=== PATIENT | male | born 1985 | race Caucasian/White ===

== ENCOUNTER 2017-05-31 12:55 | Emergency (ER) | payer OTHER ==
[~2017-05-31] VITALS: Ht 162.5 cm; Wt 56.7 kg
[~2017-05-31 12:55] MED LIST: CIPRO500 MG PO; FLAGYL500 MG PO; NAPROSYN500 MG PO; PEN-VEE K500 MG PO; SUBOXONE 8 MG-1 EACH SL; ULTRAM50 MG PO; VICODIN 5/500 505 MG PO
[2017-05-31 13:11] VITALS: BP 107/48
[2017-05-31] MEDS ORDERED: NAPROSYN500 MG PO (14:33)
== END 2017-05-31 19:59 | disposition home or self-care (01) ==
LOC: ED 12:55
DX: S30.0XXA Contusion of lower back and pelvis, initial encounter (principal); S70.02XA Contusion of left hip, initial encounter; F17.200 Nicotine dependence, unspecified, uncomplicated; W22.8XXA Striking against or struck by other objects, initial encounter; Y93.89 Activity, other specified; Y92.89 Other specified places as the place of occurrence of the external cause; Y99.8 Other external cause status

== ENCOUNTER → 2017-07-11 | Outpatient (CLI) | payer OTHER ==
[2017-07-12 07:04] LABS: HEPATITIS B SURFACE AB 006395 Non Reactive (.); HEPATITIS B SURFACE AG Negative (Negative); HEPATITIS C AB <0.1 (0.0-0.9)
== END ==
LOC: LAB 13:24
DX: Z11.59 Encounter for screening for other viral diseases (principal); Z72.89 Other problems related to lifestyle

== ENCOUNTER 2018-05-15 17:25 | Emergency (ER) | payer OTHER ==
[~2018-05-15] VITALS: Ht 162.5 cm; Wt 61.2 kg
[2018-05-15 17:26] VITALS: BP 107/48
== END 2018-05-15 19:17 | disposition home or self-care (01) ==
LOC: ED 17:25
DX: S00.83XA Contusion of other part of head, initial encounter (principal); W22.8XXA Striking against or struck by other objects, initial encounter; Y93.89 Activity, other specified; Y92.89 Other specified places as the place of occurrence of the external cause; Y99.8 Other external cause status

== ENCOUNTER 2021-02-26 16:36 | Emergency (ER) | payer OTHER ==
[~2021-02-26] VITALS: Ht 162.5 cm; Wt 54.4 kg
[2021-02-26 16:49] VITALS: BP 124/74
[2021-02-26] MEDS ORDERED: MIRALAX119 GM PO (17:38)
[2021-02-26] MEDS ORDERED: COL-RITE100 M1 PO (17:38)
[2021-02-26] MEDS ORDERED: NAPROSYN500 MG PO ×2 (17:55→17:56)
== END 2021-02-26 17:59 | disposition home or self-care (01) ==
LOC: ED 16:36
DX: K59.00 Constipation, unspecified (principal); Z79.899 Other long term (current) drug therapy

== ENCOUNTER 2023-07-17 15:51 | Emergency (ER) | payer OTHER ==
[~2023-07-17] VITALS: Ht 172.7 cm; Wt 72.6 kg
[~2023-07-17 15:51] MED LIST changes: +COL-RITE100 M1 PO; +MIRALAX119 GM PO
[2023-07-17 16:09] VITALS: BP 102/40
== END 2023-07-17 17:23 ==
LOC: ED 15:51
DX: M54.9 Dorsalgia, unspecified (principal); Z98.890 Other specified postprocedural states

== ENCOUNTER 2024-10-12 19:20 | Emergency (ER) | payer OTHER ==
[~2024-10-12] VITALS: Ht 162.5 cm; Wt 63.5 kg
[2024-10-12 19:31] VITALS: BP 103/58
[2024-10-12] MEDS ORDERED: predniSONE 20 MG TAB PO ONE (19:40)
[2024-10-12] MEDS ORDERED: METHOCARBAMOL 500 MG TAB PO ONE (19:40)
[2024-10-12] MEDS ORDERED: PREDNISONE20 M1 PO (19:41)
[2024-10-12] MEDS ORDERED: METHOCARBAMOL500 M1 PO (19:41)
== END 2024-10-12 19:38 | disposition home or self-care (01) ==
LOC: ED 19:20
DX: M94.0 Chondrocostal junction syndrome [Tietze] (principal); Z98.890 Other specified postprocedural states

== ENCOUNTER 2025-04-02 19:23 | Emergency (ER) | payer OTHER ==
[~2025-04-02] VITALS: Ht 165.1 cm; Wt 54.4 kg
[~2025-04-02 19:23] MED LIST changes: +METHOCARBAMOL500 M1 PO; +PREDNISONE20 M1 PO
[2025-04-02 19:42] VITALS: BP 102/52
[2025-04-02] MEDS ORDERED: SODIUM CHLORIDE 0.9% 1,000 ML IV ONE ×2 (19:50→21:40)
[2025-04-02] MEDS ORDERED: Ondansetron Hydrochloride 4 MG/2 ML VIAL IV ONE ×2 (19:50→21:40)
[2025-04-02 20:04] LABS: MEAN CELL VOLUME 91.7 fl (80.0-94.0); MEAN CORPUSCULAR HGB 30.0 pg (27.0-31.0); MEAN PLATELET VOLUME 11.8 fl (9.6-12.3); NUCLEATED RED BLOOD CELL 0.0 % (0.0-0.0); NUCLEATED RED BLOOD CELL 0.0 10*3/uL (0.0-0.0); PLATELET COUNT AUTOMATED 136 10*3/uL (130-400); RED CELL DISTRI WIDTH 12.0 % (0-14.5)
[2025-04-02 20:33] LABS: BUN 18 mg/dl (9-23); SGPT/ALT 28 U/L (5-49)
[2025-04-02 20:46] LABS: MANUAL DIFF REFLEX YES
[2025-04-02 20:56] LABS: PLATELET SUFFICIENCY NORMAL (NORMAL)
[2025-04-02 21:27] LABS: STOMATOCYTE FEW
[2025-04-02] MEDS ORDERED: Ondansetron4 MG PO (22:26)
[2025-04-02] MEDS ORDERED: FAMOTIDINE 20 MG TAB PO ONE (23:00)
[2025-04-02] MEDS ORDERED: PEPCID40 MG PO (23:01)
== END 2025-04-03 00:10 | disposition home or self-care (01) ==
LOC: ED 19:23
PROVIDERS: Nurse Practitioner Family
DX: A08.4 Viral intestinal infection, unspecified (principal); R11.2 Nausea with vomiting, unspecified; Z79.899 Other long term (current) drug therapy